=== PATIENT | female | born 1950 | race Caucasian/White ===

== ENCOUNTER 2019-12-05 15:55 | Inpatient (IN) | payer MEDICARE ==
[~2019-12-05] VITALS: Ht 144.8 cm; Wt 98.5 kg
[~2019-12-05 15:55] MED LIST: ACET-76 PO; ALBU8.5H8 INH; ATEN50TA41 PO; CHOL20002 PO; CITA20TA6 PO; CLIN300C8 PO; CYAN-27 PO; GABA-826 PO; HYDR-3245 PO; HYDR25TA6 PO; LISI40TA PO; MELO15TA24 PO; METH750T2 PO; Nebulizer INH; OMEP-110 PO; RANI150T4 PO; SIMV20TA3 PO; TIZA4CAP PO; TRAM50TA2 PO
--- NOTE | 2019-12-05 17:12 | NUR ---
Pt to room from lobby.
--- NOTE | 2019-12-05 17:14 | NUR ---
PT TO ROOM FROM [facility], CHANGED INTO GOWN, UPRIGHT ON GURNEY AWAKE & CALM, RESPONDS APPROP TO STAFF, NAD WITH SUPPL O2/NC IN PLACE, COMFORT MEASURES PROVIDED, FRIEND AT BS, CALL LIGHT WITHIN REACH.
--- NOTE | 2019-12-05 18:05 | NUR ---
PT REMAINS UPRIGHT ON GURNEY AWAKE & COMFORTABLE, RESPONDS APPROP TO STAFF, NAD WITH SUPPL O2/NC IN PLACE, COMFORT MEASURES PROVIDED, CALL LIGHT WITHIN REACH.
[2019-12-05] MEDS ORDERED: methylPREDNISolone SOD SUCC 125 MG/2 ML ONE (18:14)
[2019-12-05 18:35] LABS: BASOPHILS # (AUTO) 0.05 x10^3/uL (0-0.1); BASOPHILS % (AUTO) 1 % (0-1); EOSINOPHILS # (AUTO) 0.22 x10^3/uL (0-0.4); EOSINOPHILS % (AUTO) 3 % (1-7); LYMPHOCYTES # (AUTO) 2.83 x10^3/uL (1-3.4); LYMPHOCYTES % (AUTO) 33 % (22-44); MD NO; MEAN CORPUSCULAR HEMOGLOBIN 32.6 pg (27.0-34.8); MEAN CORPUSCULAR HGB CONC 32.8 g/dL (32.4-35.8); MEAN CORPUSCULAR VOLUME 99.3 fL (80-100); MEAN PLATELET VOLUME 9.6 fL (7.4-10.4); MONOCYTES # (AUTO) 1.16 x10^3/uL (0.2-0.8); MONOCYTES % (AUTO) 13 % (2-9); NEUTROPHILS # (AUTO) 4.41 x10^3/uL (1.8-6.8); NEUTROPHILS % (AUTO) 51 % (42-75); PLATELET COUNT 176 x10^3/uL (130-400); RED CELL DISTRIBUTION WIDTH 15.5 % (9.6-15.2)
[2019-12-05 18:44] LABS: ALBUMIN 3.3 g/dL (3.4-5.0); ANION GAP 8 mmol/L (5-15); CHLORIDE 99 mmol/L (98-107); CREATININE 1.29 mg/dL (0.55-1.02)
[2019-12-05 18:48] LABS: TROPONIN I < 0.015 ng/mL (0.000-0.045)
[2019-12-05 18:50] LABS: INTERNATIONAL NORMALIZED RATIO 0.93 (0.93-1.1); PROTHROMBIN TIME 9.9 Seconds (9.6-11.5)
--- NOTE | 2019-12-05 18:52 | NUR ---
report given to ronald
[2019-12-05] MEDS ORDERED: methylPREDNISolone SOD SUCC 125 MG/2 ML IV ONE (19:00)
[2019-12-05] MEDS ORDERED: SODIUM CHLORIDE FLUSH 10ML SYR IVF ONE (19:00)
--- NOTE | 2019-12-05 19:02 | NUR ---
Report received from PRIYANKA Allen. This RN to assume care.
[2019-12-05] MEDS ORDERED: DIPHENHYDRAMINE 50 MG/ML, 1ML ONE (19:13)
[2019-12-05] MEDS ORDERED: POTASSIUM CHLORIDE 20 MEQ TAB.ER.PRT ONE (19:13)
[2019-12-05] MEDS ORDERED: DIPHENHYDRAMINE 50 MG/ML, 1ML IVPush ONE (19:30)
[2019-12-05] MEDS ORDERED: POTASSIUM CHLORIDE 20 MEQ TAB.ER.PRT PO ONE (19:30)
--- NOTE | 2019-12-05 20:08 | NUR ---
Linda daughter called [phone] in case of an emergency
[2019-12-05] MEDS ORDERED: HEPARIN 25,000 UNITS/500ML PMX 500 ML ONE (20:45)
[2019-12-05] MEDS ORDERED: HEPARIN 5,000 UNITS/ML, 1ML ONE (20:45)
[2019-12-05] MEDS ORDERED: SODIUM CHLORIDE FLUSH 10ML SYR IVF PRN (21:00)
[2019-12-05] MEDS ORDERED: HEPARIN 25,000 UNITS/500ML PMX 500 ML IV PRN (21:00)
[2019-12-05] MEDS ORDERED: HEPARIN 5,000 UNITS/ML, 1ML IV ONE (21:00)
[2019-12-05] MEDS ORDERED: HEPARIN 5,000 UNITS/ML, 1ML IV PRN (21:00)
[2019-12-05] MEDS: POTASSIUM CHLORIDE 20 MEQ TAB.ER.PRT PO SCH (21:30)
[2019-12-05] MEDS: FUROSEMIDE 40 MG/4 ML IV SCH (21:30)
[2019-12-05] MEDS ORDERED: ONDANSETRON 2MG/ML, 2ML IVPush PRN (21:30)
[2019-12-05] MEDS ORDERED: TEMPLATE NON-FORMULARY MED. (Albuterol Sulfate (Proair Hfa) 2 PUFF(S)) INH SCH (21:30)
[2019-12-05] MEDS ORDERED: hydrALAzine 20 MG/ML, 1ML IVPush PRN (21:30)
--- NOTE | 2019-12-05 23:22 | NUR ---
Report given to PRIYANKA Plascencia. Patient to be transferred to room 504.
[2019-12-05 23:41] VITALS: BP 149/83
[2019-12-05] MEDS ORDERED: HEPARIN GTT MC SCH (23:45)
[2019-12-05] MEDS ORDERED: OMNIPAQUE 350 MG/ML, 100ML BOTTLE ONE (23:58)
[2019-12-06] MEDS: POTASSIUM CHLORIDE 20 MEQ TAB.ER.PRT PO SCH ×2 (00:46→09:35)
[2019-12-06] MEDS: ENOXAPARIN 100 MG/ML SQ SCH ×2 (00:46→14:40)
[2019-12-06] MEDS: INSULIN LISPRO 100 UNITS/ML, PEN SQ-INSULIN SCH ×5 (01:09→21:22)
[2019-12-06 02:00] VITALS: BP 130/86
[2019-12-06 03:39] LABS: ALANINE AMINOTRANSFERASE 45 U/L (12-78); ALBUMIN 2.9 g/dL (3.4-5.0); ANION GAP 7 mmol/L (5-15); CHLORIDE 102 mmol/L (98-107); CREATININE 1.45 mg/dL (0.55-1.02)
[2019-12-06 03:41] LABS: ALKALINE PHOSPHATASE 123 U/L (45-117); BILIRUBIN,TOTAL 0.6 mg/dL (0.2-1.0); TOTAL PROTEIN 6.9 g/dL (6.4-8.2)
[2019-12-06 03:49] LABS: BASOPHILS # (AUTO) 0.01 x10^3/uL (0-0.1); BASOPHILS % (AUTO) 0 % (0-1); EOSINOPHILS # (AUTO) 0.01 x10^3/uL (0-0.4); EOSINOPHILS % (AUTO) 0 % (1-7); LYMPHOCYTES # (AUTO) 1.27 x10^3/uL (1-3.4); LYMPHOCYTES % (AUTO) 20 % (22-44); MD NO; MEAN CORPUSCULAR HEMOGLOBIN 32.9 pg (27.0-34.8); MEAN CORPUSCULAR HGB CONC 33.3 g/dL (32.4-35.8); MEAN CORPUSCULAR VOLUME 98.7 fL (80-100); MONOCYTES # (AUTO) 0.08 x10^3/uL (0.2-0.8); MONOCYTES % (AUTO) 1 % (2-9); NEUTROPHILS # (AUTO) 4.94 x10^3/uL (1.8-6.8); NEUTROPHILS % (AUTO) 78 % (42-75); PLATELET COUNT 168 x10^3/uL (130-400); RED CELL DISTRIBUTION WIDTH 15.3 % (9.6-15.2)
[2019-12-06 07:27] VITALS: BP 118/70
[2019-12-06] MEDS: ATENOLOL 50 MG TABLET PO SCH (09:00)
[2019-12-06] MEDS: LISINOPRIL 40 MG TABLET PO SCH (09:00)
[2019-12-06] MEDS: CHOLECALCIFEROL 1,000 UNIT TABLET PO SCH (09:33)
[2019-12-06] MEDS: CITALOPRAM 20 MG TABLET PO SCH (09:35)
[2019-12-06] MEDS: ACETAMINOPHEN 325 MG TABLET PO PRN (09:35)
[2019-12-06] MEDS: TIZANIDINE 4MG TABLET PO SCH (09:35)
[2019-12-06] MEDS: GABAPENTIN 100 MG CAPSULE PO SCH (09:35)
[2019-12-06] MEDS: FUROSEMIDE 40 MG/4 ML IV SCH ×2 (09:35→18:42)
[2019-12-06] MEDS: CYANOCOBALAMIN 1,000 MCG TABLET PO SCH (09:36)
[2019-12-06 13:46] VITALS: BP 132/84
[2019-12-06 18:42] VITALS: BP 130/82
[2019-12-06 20:00] VITALS: BP 133/73
[2019-12-06] MEDS: SIMVASTATIN 20 MG TABLET PO SCH (21:14)
[2019-12-06] MEDS: BUDESONIDE 0.5 MG/2 ML INHA NPPB SCH (21:20)
[2019-12-07 03:50] VITALS: BP 147/91
[2019-12-07 05:23] LABS: BASOPHILS # (AUTO) 0.06 x10^3/uL (0-0.1); BASOPHILS % (AUTO) 1 % (0-1); EOSINOPHILS # (AUTO) 0.08 x10^3/uL (0-0.4); EOSINOPHILS % (AUTO) 1 % (1-7); LYMPHOCYTES # (AUTO) 4.02 x10^3/uL (1-3.4); LYMPHOCYTES % (AUTO) 33 % (22-44); MD NO; MEAN CORPUSCULAR HEMOGLOBIN 32.8 pg (27.0-34.8); MEAN CORPUSCULAR HGB CONC 33.1 g/dL (32.4-35.8); MEAN CORPUSCULAR VOLUME 99.2 fL (80-100); MEAN PLATELET VOLUME 9.6 fL (7.4-10.4); MONOCYTES # (AUTO) 1.24 x10^3/uL (0.2-0.8); MONOCYTES % (AUTO) 10 % (2-9); NEUTROPHILS # (AUTO) 6.94 x10^3/uL (1.8-6.8); NEUTROPHILS % (AUTO) 56 % (42-75); PLATELET COUNT 168 x10^3/uL (130-400); RED BLOOD COUNT 4.56 x10^6/uL (3.82-5.3); RED CELL DISTRIBUTION WIDTH 15.4 % (9.6-15.2)
[2019-12-07 05:24] LABS: ALBUMIN 2.9 g/dL (3.4-5.0); ANION GAP 4 mmol/L (5-15); CALCIUM 9.2 mg/dL (8.5-10.1); CHLORIDE 104 mmol/L (98-107)
[2019-12-07 05:31] LABS: ALANINE AMINOTRANSFERASE 44 U/L (12-78); ALKALINE PHOSPHATASE 96 U/L (45-117); BILIRUBIN,TOTAL 0.8 mg/dL (0.2-1.0); CREATININE 1.24 mg/dL (0.55-1.02); TOTAL PROTEIN 6.5 g/dL (6.4-8.2)
[2019-12-07 08:04] VITALS: BP 140/83
[2019-12-07] MEDS: FUROSEMIDE 40 MG/4 ML IV SCH (08:11)
[2019-12-07] MEDS: BUDESONIDE 0.5 MG/2 ML INHA NPPB SCH ×2 (08:33→20:00)
[2019-12-07] MEDS: LISINOPRIL 40 MG TABLET PO SCH (09:00)
[2019-12-07] MEDS: CITALOPRAM 20 MG TABLET PO SCH (09:00)
[2019-12-07] MEDS: GABAPENTIN 100 MG CAPSULE PO SCH (09:14)
[2019-12-07] MEDS: CHOLECALCIFEROL 1,000 UNIT TABLET PO SCH (09:14)
[2019-12-07] MEDS: CYANOCOBALAMIN 1,000 MCG TABLET PO SCH (09:14)
[2019-12-07] MEDS: POTASSIUM CHLORIDE 20 MEQ TAB.ER.PRT PO SCH (09:14)
[2019-12-07] MEDS: TIZANIDINE 4MG TABLET PO SCH (09:15)
[2019-12-07] MEDS: INSULIN LISPRO 100 UNITS/ML, PEN SQ-INSULIN SCH ×4 (09:15→21:00)
[2019-12-07] MEDS: SIMVASTATIN 20 MG TABLET PO SCH (09:15)
[2019-12-07] MEDS: ATENOLOL 50 MG TABLET PO SCH (09:15)
[2019-12-07 12:11] VITALS: BP 101/62
[2019-12-07] MEDS: ENOXAPARIN 100 MG/ML SQ SCH ×2 (12:20→23:39)
[2019-12-07] MEDS ORDERED: ENOXAPARIN 100 MG/ML SQ SCH (14:00)
[2019-12-07 17:40] VITALS: BP 114/78
[2019-12-07] MEDS: FUROSEMIDE 20 MG/2 ML IV SCH (17:44)
[2019-12-07 19:43] VITALS: BP 114/75
[2019-12-08 03:50] VITALS: BP 136/73
[2019-12-08 05:40] LABS: ANION GAP 7 mmol/L (5-15); CALCIUM 9.3 mg/dL (8.5-10.1); CHLORIDE 103 mmol/L (98-107)
[2019-12-08 05:42] LABS: CREATININE 1.13 mg/dL (0.55-1.02)
[2019-12-08 05:53] LABS: BASOPHILS # (AUTO) 0.06 x10^3/uL (0-0.1); BASOPHILS % (AUTO) 1 % (0-1); EOSINOPHILS # (AUTO) 0.23 x10^3/uL (0-0.4); EOSINOPHILS % (AUTO) 3 % (1-7); LYMPHOCYTES # (AUTO) 4.28 x10^3/uL (1-3.4); LYMPHOCYTES % (AUTO) 48 % (22-44); MD NO; MEAN CORPUSCULAR HGB CONC 32.8 g/dL (32.4-35.8); MEAN CORPUSCULAR VOLUME 100.4 fL (80-100); MEAN PLATELET VOLUME 9.4 fL (7.4-10.4); MONOCYTES # (AUTO) 1.22 x10^3/uL (0.2-0.8); MONOCYTES % (AUTO) 14 % (2-9); NEUTROPHILS # (AUTO) 3.16 x10^3/uL (1.8-6.8); NEUTROPHILS % (AUTO) 35 % (42-75); PLATELET COUNT 190 x10^3/uL (130-400); RED BLOOD COUNT 4.74 x10^6/uL (3.82-5.3); RED CELL DISTRIBUTION WIDTH 15.5 % (9.6-15.2)
[2019-12-08 06:48] VITALS: BP 130/81
[2019-12-08] MEDS: INSULIN LISPRO 100 UNITS/ML, PEN SQ-INSULIN SCH ×4 (07:00→20:19)
[2019-12-08] MEDS: POTASSIUM CHLORIDE 20 MEQ TAB.ER.PRT PO SCH (08:30)
[2019-12-08] MEDS: CHOLECALCIFEROL 1,000 UNIT TABLET PO SCH (08:30)
[2019-12-08] MEDS: LISINOPRIL 40 MG TABLET PO SCH (08:30)
[2019-12-08] MEDS: CITALOPRAM 20 MG TABLET PO SCH (08:30)
[2019-12-08] MEDS: GABAPENTIN 100 MG CAPSULE PO SCH (08:30)
[2019-12-08] MEDS: CYANOCOBALAMIN 1,000 MCG TABLET PO SCH (08:30)
[2019-12-08] MEDS: ATENOLOL 50 MG TABLET PO SCH (08:31)
[2019-12-08] MEDS: FUROSEMIDE 20 MG/2 ML IV SCH ×2 (08:31→16:50)
[2019-12-08] MEDS: TIZANIDINE 4MG TABLET PO SCH (08:32)
[2019-12-08 08:39] VITALS: BP 124/79
[2019-12-08] MEDS: BUDESONIDE 0.5 MG/2 ML INHA NPPB SCH ×2 (10:00→21:00)
[2019-12-08] MEDS: ACETAMINOPHEN 325 MG TABLET PO PRN (11:07)
[2019-12-08] MEDS: APIXABAN 5 MG TABLET PO SCH ×2 (11:17→20:18)
[2019-12-08 14:04] VITALS: BP 112/74
[2019-12-08 20:25] VITALS: BP 122/77
[2019-12-08] MEDS ORDERED: SIMVASTATIN 20 MG TABLET PO SCH (21:00)
[2019-12-09 01:40] VITALS: BP 139/80
[2019-12-09] MEDS: BUDESONIDE 0.5 MG/2 ML INHA NPPB SCH (06:57)
[2019-12-09 07:04] VITALS: BP 126/74
[2019-12-09] MEDS: INSULIN LISPRO 100 UNITS/ML, PEN SQ-INSULIN SCH ×2 (08:33→12:34)
[2019-12-09] MEDS ORDERED: BUME1TAB21 PO (08:35)
[2019-12-09] MEDS: GABAPENTIN 100 MG CAPSULE PO SCH (08:37)
[2019-12-09] MEDS: FUROSEMIDE 20 MG/2 ML IV SCH (08:37)
[2019-12-09] MEDS: TIZANIDINE 4MG TABLET PO SCH (08:37)
[2019-12-09] MEDS: CITALOPRAM 20 MG TABLET PO SCH (08:37)
[2019-12-09] MEDS: LISINOPRIL 40 MG TABLET PO SCH (08:38)
[2019-12-09] MEDS: CHOLECALCIFEROL 1,000 UNIT TABLET PO SCH (08:38)
[2019-12-09] MEDS: APIXABAN 5 MG TABLET PO SCH (08:38)
[2019-12-09] MEDS: POTASSIUM CHLORIDE 20 MEQ TAB.ER.PRT PO SCH (08:38)
[2019-12-09] MEDS: CYANOCOBALAMIN 1,000 MCG TABLET PO SCH (08:38)
[2019-12-09] MEDS: ATENOLOL 50 MG TABLET PO SCH (08:38)
[2019-12-09 12:40] VITALS: BP 133/78
[2019-12-09] MEDS ORDERED: APIX5TAB PO (13:07)
[2019-12-09] MEDS ORDERED: POTA20TA6 PO (13:07)
[2019-12-09] MEDS ORDERED: FURO20TA3 PO (13:07)
[2019-12-09] MEDS ORDERED: INSU100I11 SQ-INSULIN (13:10)
[2019-12-09] MEDS ORDERED: FLU VACC QS2019-20 36MOS UP/PF 0.5 ML IM-VACC ONE (16:00)
[2019-12-09] MEDS ORDERED: FUROSEMIDE 20 MG TABLET PO SCH (17:00)
[2019-12-10] MEDS ORDERED: POTASSIUM CHLORIDE 20 MEQ TAB.ER.PRT PO SCH (08:00)
== END 2019-12-09 16:11 | DRG 175 ==
LOC: ED 20:30 → SUATTDRO 20:54 → EDIP 21:21 → 5SO 23:37
PROVIDERS: ADMIT Internal Medicine; ATTEND Internal Medicine
DX: I26.99 Other pulmonary embolism without acute cor pulmonale (principal); J96.21 Acute and chronic respiratory failure with hypoxia; I50.31 Acute diastolic (congestive) heart failure; N17.0 Acute kidney failure with tubular necrosis; E87.2 Acidosis; Z68.42 Body mass index [BMI] 45.0-49.9, adult; I13.0 Hypertensive heart and chronic kidney disease with heart failure and stage 1 through stage 4 chronic kidney disease, or unspecified chronic kidney disease; J98.11 Atelectasis; E11.22 Type 2 diabetes mellitus with diabetic chronic kidney disease; E66.01 Morbid (severe) obesity due to excess calories; E87.6 Hypokalemia; F32.9 Major depressive disorder, single episode, unspecified; G89.29 Other chronic pain; J44.9 Chronic obstructive pulmonary disease, unspecified; N18.9 Chronic kidney disease, unspecified; Z80.3 Family history of malignant neoplasm of breast; Z80.49 Family history of malignant neoplasm of other genital organs; Z80.8 Family history of malignant neoplasm of other organs or systems; Z82.49 Family history of ischemic heart disease and other diseases of the circulatory system; Z99.81 Dependence on supplemental oxygen; Z90.710 Acquired absence of both cervix and uterus; Z79.51 Long term (current) use of inhaled steroids; Z79.899 Other long term (current) drug therapy; Z88.2 Allergy status to sulfonamides; Z88.0 Allergy status to penicillin; Z91.041 Radiographic dye allergy status; Z79.84 Long term (current) use of oral hypoglycemic drugs
CPT/HCPCS: 36415; 71045; 71275; 80048; 80053; 82040; 82962; 83036; 83605; 83735; 83880; 84100; 84484; 85025; 85520; 85610; 85730; 87040; 90686; 93005; 93306; 93970; 94640; 96374; G0378; J1644; J1650; J1940; J7626; Q9967; J1200; J1815; J2930

== ENCOUNTER → 2020-12-14 | Outpatient (CLI) | payer MEDICARE ==
[~2020-12-14] MED LIST changes: +APIX5TAB PO; +BUME1TAB21 PO; -CLIN300C8 PO; +CLIN300C9 PO; +FURO20TA3 PO; +INSU100I11 SQ-INSULIN; +POTA20TA6 PO; +SIMV20TA19 PO; -SIMV20TA3 PO
== END | disposition home or self-care (01) ==
LOC: CVU 10:30
PROVIDERS: ATTEND Internal Medicine Cardiovascular Disease
DX: I08.1 Rheumatic disorders of both mitral and tricuspid valves (principal); I27.9 Pulmonary heart disease, unspecified
CPT/HCPCS: 93306; 93356

== ENCOUNTER 2021-01-19 08:21 | Day surgery (SDC) | payer MEDICARE ==
[~2021-01-19] VITALS: Ht 144.8 cm; Wt 86.4 kg
[~2021-01-19 08:21] MED LIST changes: -HYDR-3245 PO; +HYDR1TAB53 PO; -LISI40TA PO; +LISI40TA9 PO; +METH-640 PO; -METH750T2 PO
[2021-01-19] MEDS ORDERED: OMEP-110 PO (08:51)
[2021-01-19] MEDS ORDERED: FURO20TA3 PO (08:51)
[2021-01-19] MEDS ORDERED: AZEL137S4 NAS (08:51)
[2021-01-19] MEDS ORDERED: FLUT1BLS PO (08:51)
[2021-01-19] MEDS ORDERED: ACLI400A3 INH (08:51)
[2021-01-19] MEDS ORDERED: TIOT18CA INH (08:51)
[2021-01-19] MEDS ORDERED: LEVA15HF4 INH (08:51)
[2021-01-19] MEDS ORDERED: FEXO180T72 PO (08:51)
[2021-01-19] MEDS ORDERED: RIVA20TA PO (08:51)
[2021-01-19] MEDS ORDERED: PRED10TA14 PO (08:51)
[2021-01-19] MEDS ORDERED: GLIM2TAB7 PO (08:51)
[2021-01-19] MEDS ORDERED: FLUT15.812 NAS (08:51)
[2021-01-19] MEDS ORDERED: MULT-717 PO (08:51)
[2021-01-19 08:54] VITALS: BP 149/53
[2021-01-19] MEDS ORDERED: DIPHENHYDRAMINE 50 MG/ML, 1ML IVPush ONE (09:00)
[2021-01-19] MEDS ORDERED: CHOL10003 PO (09:10)
[2021-01-19] MEDS ORDERED: UBID100C41 PO (09:10)
[2021-01-19] MEDS ORDERED: VITA100C10 PO (09:10)
[2021-01-19] MEDS ORDERED: TRIA10.8 NAS (09:10)
[2021-01-19 09:23] LABS: ANION GAP 5 mmol/L (5-15); CALCIUM 9.7 mg/dL (8.5-10.1); CHLORIDE 107 mmol/L (98-107); CREATININE 2.17 mg/dL (0.55-1.02)
[2021-01-19] MEDS ORDERED: morphine pump IMPLANT (09:30)
[2021-01-19] MEDS ORDERED: FENTANYL PF 100 MCG/2ML ONE (09:58)
[2021-01-19] MEDS ORDERED: MIDAZOLAM 1 MG/ML, 2ML ONE (09:58)
[2021-01-19] MEDS ORDERED: DIPHENHYDRAMINE 50 MG/ML, 1ML ONE (10:26)
[2021-01-19] MEDS ORDERED: LIDOCAINE-MPF 1%, 5ML ONE (10:28)
== END 2021-01-19 12:52 | disposition home or self-care (01) ==
LOC: CACL 08:21
PROVIDERS: ATTEND Internal Medicine Cardiovascular Disease
DX: I27.20 Pulmonary hypertension, unspecified (principal); I10 Essential (primary) hypertension; I27.82 Chronic pulmonary embolism; J44.9 Chronic obstructive pulmonary disease, unspecified; E11.9 Type 2 diabetes mellitus without complications; J96.11 Chronic respiratory failure with hypoxia; G47.30 Sleep apnea, unspecified; Z79.01 Long term (current) use of anticoagulants; Z79.84 Long term (current) use of oral hypoglycemic drugs; Z79.899 Other long term (current) drug therapy; Z86.718 Personal history of other venous thrombosis and embolism; Z88.0 Allergy status to penicillin; Z88.2 Allergy status to sulfonamides; Z88.8 Allergy status to other drugs, medicaments and biological substances; Z91.040 Latex allergy status; Z99.81 Dependence on supplemental oxygen
CPT/HCPCS: 36415; 80048; 82330; 82803; 82947; 84132; 84295; 85014; 93451; C1769; C1894; J1200; J2250; J3010

== ENCOUNTER → 2021-08-11 | Outpatient (CLI) | payer MEDICARE ==
[~2021-08-11] MED LIST changes: +ACLI400A3 INH; +AZEL137S4 NAS; +CHOL10003 PO; +FEXO180T72 PO; +FLUT15.812 NAS; +FLUT1BLS PO; +GLIM2TAB7 PO; +LEVA15HF4 INH; +MULT-717 PO; +POTA-143 PO; -POTA20TA6 PO; +PRED10TA14 PO; +REGADENOSON 0.4 MG/5 ML SYRINGE ONE; +RIVA20TA PO; +TIOT18CA INH; +TRIA10.8 NAS; +UBID100C41 PO; +VITA100C10 PO; +morphine pump IMPLANT
== END | disposition home or self-care (01) ==
LOC: CFH 12:20
PROVIDERS: ATTEND Internal Medicine Cardiovascular Disease
DX: Z01.810 Encounter for preprocedural cardiovascular examination (principal); I25.10 Atherosclerotic heart disease of native coronary artery without angina pectoris; R06.02 Shortness of breath
CPT/HCPCS: 75571; 78452; 93017; A9502; J2785